=== PATIENT | male | born 1955 | race Native Hawaiian/Other Pacific Islander ===

== ENCOUNTER 2022-06-08 11:23 | Outpatient (CLI) | payer BC | END 2022-06-08 19:24 | disposition home or self-care (01) | LOC: LABW 11:23 | PROVIDERS: ATTEND Internal Medicine Cardiovascular Disease | DX: I50.9 Heart failure, unspecified (principal) | CPT/HCPCS: 36415; 83880 ==

== ENCOUNTER 2022-12-28 12:04 | Outpatient (CLI) | payer BC | END 2022-12-28 19:18 | disposition home or self-care (01) | LOC: LABW 12:04 | PROVIDERS: ATTEND Internal Medicine Cardiovascular Disease | DX: E11.59 Type 2 diabetes mellitus with other circulatory complications (principal) | CPT/HCPCS: 36415; 82947; 83036; 83525 ==